=== PATIENT | male | born 1970 | race African-American/Black ===

== ENCOUNTER 2017-04-09 22:13 | Emergency (ER) | payer SELFPAY ==
[~2017-04-09] VITALS: Ht 182.8 cm; Wt 90.7 kg
[~2017-04-09 22:13] MED LIST: CLINDAMYCIN150 MG PO; CORTISPORIN 1%-10 M1 OT; FLONASE 0.05% 121 EA NAS; MOTRIN800 MG PO; TRAMADOL HCL50 MG PO; ZITHROMAX Z PA250 MG PO
[2017-04-09 23:09] LABS: BASO % 0.9 % (0.0-1.0); HEMATOCRIT 39.1 % (42.0-52.0); HEMOGLOBIN 12.9 g/dl (14.0-18.0); LYMPH # 1.3 10*3/uL (1.3-4.4); LYMPH % 28.3 % (27.0-41.0); MEAN CELL VOLUME 90.1 fl (80.0-94.0); MEAN CORPUSCULAR HGB 29.7 pg (27.0-31.0); MEAN PLATELET VOLUME 9.2 fl (9.6-12.3); MONO # 0.2 10*3/uL (0.1-1.0); MONO % 5.3 % (3.0-9.0); NEUT % 65.5 % (47.0-73.0); PLATELET COUNT AUTOMATED 228 10*3/uL (130-400); RED BLOOD COUNT 4.34 10*6/uL (4.50-5.90); RED CELL DISTRI WIDTH 14.1 % (0-14.5); WHITE BLOOD COUNT 4.5 10*3/uL (4.8-10.8)
[2017-04-09 23:24] LABS: ALBUMIN 4.2 gm/dl (3.1-4.5); ALKALINE PHOSPHATASE 97 U/L (45-117); BUN 6 mg/dl (7-24); CHLORIDE 104 mmol/L (98-107); CREATININE 1.02 mg/dL (0.70-1.30); LIPASE 86 U/L (73-393); POTASSIUM 3.5 mmol/L (3.5-5.1); SGOT/AST 145 IU/L (3-35); SGPT/ALT 90 U/L (12-78); SODIUM 139 mmol/L (136-145)
[2017-04-10 00:58] LABS: BILIRUBIN 1+ (NEGATIVE); BLOOD NEGATIVE (NEGATIVE); CLARITY SL CLOUDY (CLEAR); COLOR YELLOW (YELLOW); GLUCOSE NEGATIVE (NEGATIVE); KETONE 2+ (NEGATIVE); LEUKO ESTERASE 1+ (NEGATIVE); NITRITE NEGATIVE (NEGATIVE); PH 7.5 (5.0-9.0)
[2017-04-10] MEDS ORDERED: ZOFRAN ODT4 MG SL (01:04)
[2017-04-10 01:06] LABS: BACTERIA 1+; WBC 21-30 wbc/hpf (0-5)
== END 2017-04-10 01:36 | disposition home or self-care (01) ==
LOC: ED 22:13
PROVIDERS: Emergency Medicine Emergency Medical Services
DX: E86.0 Dehydration (principal); K52.9 Noninfective gastroenteritis and colitis, unspecified; F17.200 Nicotine dependence, unspecified, uncomplicated; Z88.0 Allergy status to penicillin; Z91.040 Latex allergy status

== ENCOUNTER 2017-10-26 15:59 | Inpatient (IN) | payer SELFPAY ==
[~2017-10-26] VITALS: Ht 182.9 cm; Wt 89.6 kg
[~2017-10-26 15:59] MED LIST changes: +ZOFRAN ODT4 MG SL
[2017-10-26 16:00] VITALS: BP 129/92
[2017-10-26 17:11] LABS: BASO # 0.1 10*3/uL (0.0-0.1); BASO % 0.6 % (0.0-1.0); EOS % 0.5 % (1.0-4.0); HEMATOCRIT 40.3 % (42.0-52.0); HEMOGLOBIN 13.1 g/dl (14.0-18.0); LYMPH # 2.6 10*3/uL (1.3-4.4); LYMPH % 30.4 % (27.0-41.0); MEAN CELL VOLUME 90.8 fl (80.0-94.0); MEAN CORPUSCULAR HGB 29.5 pg (27.0-31.0); MEAN CORPUSCULAR HGB CONC 32.5 g/dl (33.0-37.0); MEAN PLATELET VOLUME 8.8 fl (9.6-12.3); MONO # 0.7 10*3/uL (0.1-1.0); MONO % 7.5 % (3.0-9.0); NEUT # 5.2 10*3/uL (2.3-7.9); NEUT % 60.8 % (47.0-73.0); PLATELET COUNT AUTOMATED 272 10*3/uL (130-400); RED BLOOD COUNT 4.44 10*6/uL (4.50-5.90); RED CELL DISTRI WIDTH 13.8 % (0-14.5); WHITE BLOOD COUNT 8.6 10*3/uL (4.8-10.8)
[2017-10-26 17:27] LABS: ALBUMIN 4.1 gm/dl (3.1-4.5); ALKALINE PHOSPHATASE 87 U/L (45-117); BUN 7 mg/dl (7-24); CHLORIDE 103 mmol/L (98-107); CREATININE 0.97 mg/dL (0.70-1.30); POTASSIUM 3.9 mmol/L (3.5-5.1); SGOT/AST 31 IU/L (3-35); SGPT/ALT 28 U/L (12-78); SODIUM 140 mmol/L (136-145); TOTAL PROTEIN 8.1 gm/dL (6.4-8.2)
[2017-10-26 18:56] VITALS: BP 128/80
[2017-10-26 19:00] VITALS: BP 130/84
[2017-10-26 19:17] VITALS: BP 130/84
[2017-10-26 20:00] VITALS: BP 126/81
[2017-10-27] VITALS: BP 129/89
[2017-10-27 06:55] LABS: BASO # 0.1 10*3/uL (0.0-0.1); BASO % 0.8 % (0.0-1.0); EOS # 0.1 10*3/uL (0.0-0.4); EOS % 1.1 % (1.0-4.0); HEMATOCRIT 37.5 % (42.0-52.0); LYMPH # 2.8 10*3/uL (1.3-4.4); LYMPH % 43.1 % (27.0-41.0); MEAN CELL VOLUME 91.7 fl (80.0-94.0); MEAN CORPUSCULAR HGB 29.3 pg (27.0-31.0); MEAN PLATELET VOLUME 8.6 fl (9.6-12.3); MONO # 0.5 10*3/uL (0.1-1.0); MONO % 7.8 % (3.0-9.0); PLATELET COUNT AUTOMATED 245 10*3/uL (130-400); RED BLOOD COUNT 4.09 10*6/uL (4.50-5.90); RED CELL DISTRI WIDTH 13.8 % (0-14.5); WHITE BLOOD COUNT 6.4 10*3/uL (4.8-10.8)
[2017-10-27 07:24] LABS: ACT PARTIAL THROMBO TIME 28.3 SECONDS (20.8-31.5); ALBUMIN 3.3 gm/dl (3.1-4.5); ALKALINE PHOSPHATASE 67 U/L (45-117); BUN 10 mg/dl (7-24); CHLORIDE 104 mmol/L (98-107); CHOLESTEROL 156 mg/dL (<200); CREATININE 1.02 mg/dL (0.70-1.30); FREE T4 1.04 ng/dl (0.76-1.46); HDL CHOLESTEROL 78 mg/dl (40-60); LDL CHOLESTEROL 65 mg/dL (9-159); PHOSPHOROUS 3.4 mg/dL (2.5-4.9); POTASSIUM 3.6 mmol/L (3.5-5.1); SGOT/AST 23 IU/L (3-35); SGPT/ALT 21 U/L (12-78); SODIUM 141 mmol/L (136-145); TOTAL PROTEIN 6.8 gm/dL (6.4-8.2); TRIGLYCERIDES 64 mg/dl (<150); VLDL CHOLESTEROL 13 mg/dL (6-40)
[2017-10-27 08:00] VITALS: BP 140/96
[2017-10-27 09:00] VITALS: BP 124/85
[2017-10-27 09:33] LABS: VITAMIN D, 25-HYDROXY 9.8 ng/mL (30-100)
[2017-10-27 16:00] VITALS: BP 144/89
[2017-10-27 20:00] VITALS: BP 119/81
[2017-10-28] VITALS: BP 143/90
[2017-10-28 08:00] VITALS: BP 108/78
[2017-10-28 12:00] VITALS: BP 126/87
[2017-10-28] MEDS ORDERED: SEPTDS PO (13:06)
[2017-10-28] MEDS ORDERED: VITAMIN D5000 UNI1 PO (13:06)
[2017-10-28] MEDS ORDERED: CEPHALEXIN500 M1 PO (13:06)
== END 2017-10-28 13:55 | disposition home or self-care (01) | DRG 603 ==
LOC: ED 15:59 → 4E 18:08 → EDHOLD 18:08 → 4E 18:47
PROVIDERS: Family Medicine; Physician Assistant
DX: L03.114 Cellulitis of left upper limb (principal); E44.0 Moderate protein-calorie malnutrition; D64.9 Anemia, unspecified; S61.432A Puncture wound without foreign body of left hand, initial encounter; W01.0XXA Fall on same level from slipping, tripping and stumbling without subsequent striking against object, initial encounter; E55.9 Vitamin D deficiency, unspecified; Z68.26 Body mass index [BMI] 26.0-26.9, adult; Z71.6 Tobacco abuse counseling; Z72.0 Tobacco use; Z80.3 Family history of malignant neoplasm of breast; Z88.0 Allergy status to penicillin; Z91.040 Latex allergy status; Y93.89 Activity, other specified; Y92.89 Other specified places as the place of occurrence of the external cause; Y99.8 Other external cause status

== ENCOUNTER 2018-04-25 21:42 | Inpatient (IN) | payer MEDICAID ==
[~2018-04-25] VITALS: Ht 182.8 cm; Wt 87.2 kg
--- NOTE | ~2018-04-25 | O ---
[place], [place] OPERATIVE NOTE NAME: [id number] UNIT #: [id number] ROOM: [facility] DOCTOR: AISLINN CUELLAR DO BIRTHDATE: [birth year] DOS: 04/28/2018 PREOPERATIVE DIAGNOSIS: Left hand thenar eminence abscess and foreign body. POSTOPERATIVE DIAGNOSIS: Left hand thenar eminence multiloculated abscess with foreign body, deep to the muscle and fascia. OPERATIVE PROCEDURES: Incision, drainage, debridement of left hand thenar eminence, multiloculated abscess and removal of foreign body deep to the fascia and muscle. SURGEON: Aislinn Cuellar DO HOG CONFINEMENT SYSTEM MANAGER: Shankar. ANESTHESIA: Meli, GUILLERMO INDICATIONS: The patient is a 47-year-old male with a reported recurrent pain, swelling and erythema at the thenar eminence of the left hand. This began at the early October 2017. The patient was reported to have fallen in a wooded area with high grass. He states at one point he was admitted to the hospital for 5 days of IV antibiotics. The pain and swelling in the left hand would wax and wane since that time. DESCRIPTION OF PROCEDURE: The left hand was marked in the holding area. The patient was brought to the operative suite. No additional antibiotics were given as the patient has been on antibiotics for the last 48 hours. The left hand was marked in the holding room. The patient was brought to the operative suite. The patient was placed supine on the operative table. The timeout was performed. The general anesthetic with LMA intubation was performed. The left upper extremity was prepped and draped in usual orthopedic fashion. Tourniquet was placed on the left upper arm. The arm was elevated and the tourniquet was inflated to 250 mmHg. The incision was planned at the ulnar border of the thenar eminence. This was marked with a marking pen. Under loupe magnification, the incision approximately 3 cm in length was made sharply with a scalpel. Subcutaneous tissue was spread down to the level of the musculature of the thenar eminence. There was noted to be a white shiny thick capsule, which was debrided and opened. There was gross purulence, both a thin daniel fluid as well as thick gelatinous yellow purulence. Deep cultures were obtained. The abscess was followed both proximally and distally and 2 further pockets of infection were noted. In the more proximal direction as the muscular tissue was spread along the fibers, an additional pocket of fluid was identified. This was opened, purulence was expressed and an approximately 1.5 x 0.5 cm organic wooden appearing foreign body was removed. This was sent to the lab for further study. The capsules of these pockets were debrided under loupe magnification. The tunneling was noted to be approximately 4 cm in length. The pockets appeared to communicate. The area was copiously irrigated with normal saline. When no further purulence or foreign material was noted, the wound was packed with 0.25-inch iodoform loosely. The incision was closed with 4-0 Prolene. The iodoform was soaked in Marcaine 0.5% plain. The dressing was applied, Xeroform, [place], [place] OPERATIVE NOTE NAME: BERONICA LINDSEY UNIT #: [id number] ROOM: [facility] DOCTOR: AISLINN CUELLAR DO BIRTHDATE: [birth year] 4 x 4s, cast padding and a thumb spica type fashion followed by an Kun bandage, 2-inch and 4-inch. The tourniquet was released. The patient was extubated and taken to the recovery room in satisfactory condition. Sponge and needle count correct. ESTIMATED BLOOD LOSS: 5 mL. SPECIMENS: Fluid was sent to the lab for stat Gram stain, culture and sensitivity, soft tissue and foreign body were sent to the lab for verification. COMPLICATIONS: None. FINDINGS: Multiloculated abscess in the thenar eminence of the left hand with organic foreign body deep to the fascia and muscle. AISLINN CUELLAR DO CM:OPRECORD:OPERATIVE NOTE [id number] AISLINN CUELLAR DO 04/28/181843 interface
--- NOTE | ~2018-04-25 | EKG ---
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
[~2018-04-25 21:42] MED LIST changes: +CEPHALEXIN500 M1 PO; +SEPTDS PO; +VITAMIN D5000 UNI1 PO
[2018-04-25 21:44] VITALS: BP 127/85
[2018-04-25 22:16] LABS: BASO # 0.1 10*3/uL (0.0-0.1); EOS % 0.6 % (1.0-4.0); HEMATOCRIT 36.8 % (42.0-52.0); HEMOGLOBIN 12.3 g/dl (14.0-18.0); LYMPH # 2.6 10*3/uL (1.3-4.4); LYMPH % 51.5 % (27.0-41.0); MEAN CELL VOLUME 90.2 fl (80.0-94.0); MEAN CORPUSCULAR HGB 30.1 pg (27.0-31.0); MEAN CORPUSCULAR HGB CONC 33.4 g/dl (33.0-37.0); MEAN PLATELET VOLUME 8.6 fl (9.6-12.3); MONO # 0.4 10*3/uL (0.1-1.0); MONO % 8.4 % (3.0-9.0); NEUT % 38.5 % (47.0-73.0); PLATELET COUNT AUTOMATED 265 10*3/uL (130-400); RED BLOOD COUNT 4.08 10*6/uL (4.50-5.90); RED CELL DISTRI WIDTH 13.7 % (0-14.5); WHITE BLOOD COUNT 5.1 10*3/uL (4.8-10.8)
[2018-04-25 22:30] LABS: ALBUMIN 3.7 gm/dl (3.1-4.5); ALKALINE PHOSPHATASE 81 U/L (45-117); BUN 8 mg/dl (7-24); CHLORIDE 106 mmol/L (98-107); CREATININE 0.97 mg/dL (0.70-1.30); POTASSIUM 3.4 mmol/L (3.5-5.1); SGOT/AST 27 IU/L (3-35); SGPT/ALT 21 U/L (12-78); SODIUM 140 mmol/L (136-145); TOTAL PROTEIN 7.7 gm/dL (6.4-8.2)
[2018-04-26 00:39] VITALS: BP 119/80
[2018-04-26 01:00] VITALS: BP 126/94
[2018-04-26 06:39] LABS: BASO % 0.9 % (0.0-1.0); EOS # 0.1 10*3/uL (0.0-0.4); EOS % 1.2 % (1.0-4.0); HEMATOCRIT 35.5 % (42.0-52.0); HEMOGLOBIN 11.7 g/dl (14.0-18.0); LYMPH # 2.5 10*3/uL (1.3-4.4); LYMPH % 59.1 % (27.0-41.0); MEAN CELL VOLUME 90.8 fl (80.0-94.0); MEAN CORPUSCULAR HGB 29.9 pg (27.0-31.0); MEAN PLATELET VOLUME 8.8 fl (9.6-12.3); MONO # 0.4 10*3/uL (0.1-1.0); MONO % 9.3 % (3.0-9.0); NEUT # 1.3 10*3/uL (2.3-7.9); NEUT % 29.3 % (47.0-73.0); PLATELET COUNT AUTOMATED 264 10*3/uL (130-400); RED BLOOD COUNT 3.91 10*6/uL (4.50-5.90); WHITE BLOOD COUNT 4.3 10*3/uL (4.8-10.8)
[2018-04-26 06:41] LABS: ALBUMIN 3.4 gm/dl (3.1-4.5); ALKALINE PHOSPHATASE 75 U/L (45-117); BUN 6 mg/dl (7-24); CHLORIDE 106 mmol/L (98-107); CHOLESTEROL 167 mg/dL (<200); CREATININE 1.09 mg/dL (0.70-1.30); HDL CHOLESTEROL 77 mg/dl (40-60); LDL CHOLESTEROL 72 mg/dL (9-159); PHOSPHOROUS 2.8 mg/dL (2.5-4.9); POTASSIUM 3.6 mmol/L (3.5-5.1); SGOT/AST 24 IU/L (3-35); SGPT/ALT 20 U/L (12-78); SODIUM 141 mmol/L (136-145); TRIGLYCERIDES 90 mg/dl (<150); VLDL CHOLESTEROL 18 mg/dL (6-40)
[2018-04-26 06:47] LABS: THYROID STIM HORMONE (HS) 0.739 uIU/ml (0.358-4.75)
[2018-04-26 07:28] LABS: VITAMIN D, 25-HYDROXY 10.5 ng/mL (30-100)
[2018-04-26 08:00] VITALS: BP 115/73
[2018-04-26 12:00] VITALS: BP 119/74
[2018-04-26 16:00] VITALS: BP 118/76
[2018-04-26 20:00] VITALS: BP 125/71
[2018-04-27] VITALS: BP 115/74
[2018-04-27 08:00] VITALS: BP 124/77
[2018-04-27 12:00] VITALS: BP 108/74
[2018-04-27 16:00] VITALS: BP 119/83
[2018-04-27 20:00] VITALS: BP 121/79
[2018-04-28] VITALS (9 sets, daily range): BP systolic 112–146; BP diastolic 69–96
[2018-04-28 06:32] LABS: BASO # 0.1 10*3/uL (0.0-0.1); BASO % 1.3 % (0.0-1.0); EOS # 0.1 10*3/uL (0.0-0.4); EOS % 1.5 % (1.0-4.0); HEMATOCRIT 35.8 % (42.0-52.0); HEMOGLOBIN 11.8 g/dl (14.0-18.0); LYMPH # 2.4 10*3/uL (1.3-4.4); LYMPH % 51.6 % (27.0-41.0); MEAN CELL VOLUME 90.4 fl (80.0-94.0); MEAN CORPUSCULAR HGB 29.8 pg (27.0-31.0); MEAN PLATELET VOLUME 8.5 fl (9.6-12.3); MONO # 0.4 10*3/uL (0.1-1.0); NEUT # 1.7 10*3/uL (2.3-7.9); NEUT % 36.4 % (47.0-73.0); PLATELET COUNT AUTOMATED 263 10*3/uL (130-400); RED BLOOD COUNT 3.96 10*6/uL (4.50-5.90); RED CELL DISTRI WIDTH 13.4 % (0-14.5); WHITE BLOOD COUNT 4.7 10*3/uL (4.8-10.8)
== END 2018-04-28 17:23 | disposition home or self-care (01) | DRG 580 ==
LOC: ED 21:42 → EDHOLD 04-26 00:10 → 5E 04-26 00:10
PROVIDERS: Emergency Medicine; Family Medicine; Orthopaedic Surgery
PROC: 0KCD0ZZ Extirpation of Matter from Left Hand Muscle, Open Approach (ICD-10-PCS; principal; 2018-04-28)
PROC: 0JBK0ZZ Excision of Left Hand Subcutaneous Tissue and Fascia, Open Approach (ICD-10-PCS; 2018-04-28)
PROC: 0J9K0ZZ Drainage of Left Hand Subcutaneous Tissue and Fascia, Open Approach (ICD-10-PCS; 2018-04-28)
DX: L03.114 Cellulitis of left upper limb (principal); L02.512 Cutaneous abscess of left hand; R79.82 Elevated C-reactive protein (CRP); E66.3 Overweight; E55.9 Vitamin D deficiency, unspecified; D64.9 Anemia, unspecified; E87.6 Hypokalemia; R03.0 Elevated blood-pressure reading, without diagnosis of hypertension; S60.552A Superficial foreign body of left hand, initial encounter; W18.30XA Fall on same level, unspecified, initial encounter; Y93.89 Activity, other specified; Y92.89 Other specified places as the place of occurrence of the external cause; Y99.8 Other external cause status; Z72.0 Tobacco use; Z71.6 Tobacco abuse counseling; Z88.0 Allergy status to penicillin; Z91.040 Latex allergy status; Z80.3 Family history of malignant neoplasm of breast; Z79.899 Other long term (current) drug therapy; Z68.26 Body mass index [BMI] 26.0-26.9, adult

== ENCOUNTER 2020-06-10 19:22 | Emergency (ER) | payer SELFPAY ==
[~2020-06-10] VITALS: Ht 182.8 cm; Wt 88.5 kg
[2020-06-10 19:55] LABS: BILIRUBIN Negative (Negative); BLOOD Negative (Negative); CLARITY Clear (Clear); COLOR Yellow (Yellow); GLUCOSE Negative (Negative); KETONE Negative (Negative); LEUKO ESTERASE Negative (Negative); NITRITE Negative (Negative); PH 6.5 (4.5-8.0); SPECIFIC GRAVITY <= 1.005 (1.001-1.030); UROBILINOGEN 0.2 E.U./dl (0.0-1.0)
[2020-06-10 20:06] LABS: EPITHELIAL CELLS 0-2; WBC 0-2 wbc/hpf (0-5)
[2020-06-10] MEDS ORDERED: ROBAXIN-750750 MG PO (20:19)
[2020-06-10] MEDS ORDERED: NAPROSYN500 MG PO (20:19)
== END 2020-06-10 20:32 | disposition home or self-care (01) ==
LOC: ED 19:22
PROVIDERS: Internal Medicine
DX: S29.012A Strain of muscle and tendon of back wall of thorax, initial encounter (principal); Z88.0 Allergy status to penicillin; Z91.040 Latex allergy status; X58.XXXA Exposure to other specified factors, initial encounter; Y93.89 Activity, other specified; Y92.89 Other specified places as the place of occurrence of the external cause; Y99.8 Other external cause status

== ENCOUNTER 2020-10-14 21:09 | Emergency (ER) | payer OTHER ==
[~2020-10-14] VITALS: Ht 182.8 cm; Wt 90.7 kg
[~2020-10-14 21:09] MED LIST changes: +NAPROSYN500 MG PO; +ROBAXIN-750750 MG PO
== END 2020-10-15 02:00 | disposition left against medical advice (07) ==
LOC: ED 21:09
DX: M79.661 Pain in right lower leg (principal); L53.9 Erythematous condition, unspecified; Z53.21 Procedure and treatment not carried out due to patient leaving prior to being seen by health care provider

== ENCOUNTER 2021-03-18 17:18 | Emergency (ER) | payer SELFPAY ==
[~2021-03-18] VITALS: Wt 102.1 kg
[2021-03-18] MEDS ORDERED: PREDNISONE20 M1 PO (20:15)
[2021-03-18] MEDS ORDERED: ZITHROMAX250 MG PO (20:15)
[2021-03-18] MEDS ORDERED: PROVENTIL HFA6.7 GM INH (20:15)
== END 2021-03-18 20:21 | disposition home or self-care (01) ==
LOC: ED 17:18
DX: U07.1 COVID-19 (principal); J12.82 Pneumonia due to coronavirus disease 2019; Z88.0 Allergy status to penicillin; Z91.040 Latex allergy status

== ENCOUNTER 2021-09-07 16:16 | Emergency (ER) | payer OTHER ==
[~2021-09-07] VITALS: Ht 182.8 cm; Wt 95.3 kg
[~2021-09-07 16:16] MED LIST changes: +PREDNISONE20 M1 PO; +PROVENTIL HFA6.7 GM INH; +ZITHROMAX250 MG PO
== END 2021-09-07 18:00 | disposition home or self-care (01) ==
LOC: ED 16:16
DX: H10.9 Unspecified conjunctivitis (principal); Z88.0 Allergy status to penicillin; Z91.040 Latex allergy status; Z87.891 Personal history of nicotine dependence

== ENCOUNTER → 2022-07-21 | Outpatient (CLI) | payer OTHER ==
[2022-07-21 14:53] LABS: BASO % 0.7 % (0.0-1.0); EOS # 0.1 10*3/uL (0.0-0.4); EOS % 0.9 % (1.0-4.0); HEMATOCRIT 40.2 % (42.0-52.0); LYMPH % 53.5 % (27.0-41.0); MEAN CELL VOLUME 89.5 fl (80.0-94.0); MEAN CORPUSCULAR HGB 28.5 pg (27.0-31.0); MEAN CORPUSCULAR HGB CONC 31.8 g/dl (33.0-37.0); MEAN PLATELET VOLUME 9.3 fl (9.6-12.3); MONO # 0.4 10*3/uL (0.1-1.0); MONO % 7.6 % (3.0-9.0); NEUT # 2.1 10*3/uL (2.3-7.9); NEUT % 37.1 % (47.0-73.0); PLATELET COUNT AUTOMATED 301 10*3/uL (130-400); RED BLOOD COUNT 4.49 10*6/uL (4.50-5.90); RED CELL DISTRI WIDTH 14.6 % (0-14.5); WHITE BLOOD COUNT 5.7 10*3/uL (4.8-10.8)
[2022-07-21 15:11] LABS: ALKALINE PHOSPHATASE 101 U/L (46-116); BUN 7 mg/dl (9-23); CHLORIDE 104 mmol/L (98-107); CHOLESTEROL 220 mg/dL (<200); GAMMA GLUTAMYL TRANSPEPTIDASE 56 U/L (0-73); LDL CHOLESTEROL 140 mg/dL (9-159); SGPT/ALT 17 U/L (10-49); T3 UPTAKE 24.5 % (22.4-36.7); THYROID STIM HORMONE (HS) 0.998 uIU/ml (0.550-4.780); THYROXINE (T4) TOTAL 6.5 ug/dl (4.5-10.9); TOTAL PROTEIN 7.9 gm/dL (6.0-8.0); TRIGLYCERIDES 101 mg/dl (<150); URIC ACID 5.6 mg/dL (3.7-9.2); VITAMIN D, 25-HYDROXY 11.4 ng/mL (30-100)
== END | disposition home or self-care (01) ==
LOC: LAB 13:25
PROVIDERS: ATTEND Family Medicine
DX: E78.5 Hyperlipidemia, unspecified (principal); E55.9 Vitamin D deficiency, unspecified; R79.89 Other specified abnormal findings of blood chemistry; R53.83 Other fatigue; R74.8 Abnormal levels of other serum enzymes; R06.02 Shortness of breath; M47.814 Spondylosis without myelopathy or radiculopathy, thoracic region; I70.0 Atherosclerosis of aorta

== ENCOUNTER → 2022-08-16 | Outpatient (CLI) | payer OTHER ==
[~2022-08-16] MED LIST changes: +ELIQUIS5 M2 PO; +VIBRAMYCIN100 MG PO
== END | disposition home or self-care (01) ==
LOC: CT 00:28
PROVIDERS: ATTEND Family Medicine
DX: I26.99 Other pulmonary embolism without acute cor pulmonale (principal); K76.0 Fatty (change of) liver, not elsewhere classified

== ENCOUNTER 2022-08-17 14:29 | Emergency (ER) | payer OTHER ==
[~2022-08-17] VITALS: Ht 182.8 cm; Wt 104.3 kg
[~2022-08-17 14:29] MED LIST changes: -ELIQUIS5 M2 PO; -VIBRAMYCIN100 MG PO
[2022-08-17] MEDS ORDERED: ELIQUIS5 M2 PO (14:53)
[2022-08-17] MEDS ORDERED: VIBRAMYCIN100 MG PO (15:50)
== END 2022-08-17 16:17 | disposition home or self-care (01) ==
LOC: ED 14:29
DX: J90 Pleural effusion, not elsewhere classified (principal); Z88.0 Allergy status to penicillin; Z91.040 Latex allergy status; Z87.891 Personal history of nicotine dependence

== ENCOUNTER → 2022-09-06 | Outpatient (CLI) | payer OTHER ==
[~2022-09-06] MED LIST changes: +ELIQUIS5 M2 PO; +VIBRAMYCIN100 MG PO
== END | disposition short-term general hospital (02) ==
LOC: CARD 01:19 → US 09:30
PROVIDERS: ATTEND Family Medicine
DX: Z13.6 Encounter for screening for cardiovascular disorders (principal); R06.09 Other forms of dyspnea

== ENCOUNTER → 2022-11-02 | Outpatient (CLI) | payer OTHER | END | disposition home or self-care (01) | LOC: RAD 15:18 | PROVIDERS: ATTEND Family Medicine | DX: M19.011 Primary osteoarthritis, right shoulder (principal); M17.11 Unilateral primary osteoarthritis, right knee; M25.461 Effusion, right knee; M25.861 Other specified joint disorders, right knee ==

== ENCOUNTER → 2022-12-03 | Outpatient (CLI) | payer OTHER | END | disposition home or self-care (01) | LOC: MRI 01:14 | PROVIDERS: ATTEND Family Medicine | DX: S43.491A Other sprain of right shoulder joint, initial encounter (principal); M85.861 Other specified disorders of bone density and structure, right lower leg; M85.811 Other specified disorders of bone density and structure, right shoulder; M17.11 Unilateral primary osteoarthritis, right knee; X58.XXXA Exposure to other specified factors, initial encounter; Y93.89 Activity, other specified; Y92.89 Other specified places as the place of occurrence of the external cause; Y99.8 Other external cause status ==

== ENCOUNTER → 2023-01-11 | Outpatient (CLI) | payer OTHER ==
[2023-01-11 08:26] LABS: MEAN CORPUSCULAR HGB 29.9 pg (27.0-31.0); MEAN CORPUSCULAR HGB CONC 33.2 g/dl (33.0-37.0); PLATELET COUNT AUTOMATED 271 10*3/uL (130-400); RED BLOOD COUNT 4.22 10*6/uL (4.50-5.90); RED CELL DISTRI WIDTH 14.3 % (0-14.5); RETICULOCYTE % 1.72 % (0.50-2.50); WHITE BLOOD COUNT 5.8 10*3/uL (4.8-10.8)
[2023-01-11 08:28] LABS: MANUAL DIFF REFLEX YES
[2023-01-11 08:31] LABS: BILIRUBIN Negative (Negative); BLOOD Negative (Negative); CLARITY Clear (Clear); COLOR Yellow (Yellow); GLUCOSE Negative (Negative); KETONE Trace (Negative); LEUKO ESTERASE Negative (Negative); NITRITE Negative (Negative); PH 6.5 (4.5-8.0)
[2023-01-11 08:40] LABS: EPITHELIAL CELLS 0-2
[2023-01-11 08:46] LABS: ALKALINE PHOSPHATASE 89 U/L (46-116); BUN 6 mg/dl (9-23); CHLORIDE 109 mmol/L (98-107); POTASSIUM 4.1 mmol/L (3.4-5.1); SGPT/ALT 14 U/L (10-49); TOTAL PROTEIN 7.1 gm/dL (6.0-8.0)
[2023-01-11 08:50] LABS: TOTAL CELLS COUNTED 100 #CELLS
[2023-01-11 08:51] LABS: BURR CELLS FEW; OVALOCYTES FEW; PLATELET SUFFICIENCY NORMAL (NORMAL); POLYCHROMASIA SLIGHT; ROULEAUX SLIGHT
[2023-01-11 09:02] LABS: T3 UPTAKE 27.9 % (22.4-36.7); THYROXINE (T4) TOTAL 6.1 ug/dl (4.5-10.9)
[2023-01-11 09:18] LABS: VITAMIN D, 25-HYDROXY 13.3 ng/mL (30-100)
== END | disposition home or self-care (01) ==
LOC: CT 12-23 13:00
PROVIDERS: ATTEND Family Medicine
DX: Z01.818 Encounter for other preprocedural examination (principal); E78.5 Hyperlipidemia, unspecified; E55.9 Vitamin D deficiency, unspecified; I27.82 Chronic pulmonary embolism; R79.89 Other specified abnormal findings of blood chemistry; R74.8 Abnormal levels of other serum enzymes; R53.83 Other fatigue; K76.0 Fatty (change of) liver, not elsewhere classified

== ENCOUNTER 2023-04-03 13:34 | Emergency (ER) | payer OTHER ==
[~2023-04-03] VITALS: Ht 182.8 cm; Wt 95.3 kg
[2023-04-03 15:47] LABS: BASO % 0.3 % (0.0-1.0); HEMATOCRIT 40.8 % (42.0-52.0); LYMPH # 1.4 10*3/uL (1.3-4.4); LYMPH % 20.6 % (27.0-41.0); MEAN CORPUSCULAR HGB 28.8 pg (27.0-31.0); MEAN CORPUSCULAR HGB CONC 33.1 g/dl (33.0-37.0); MEAN PLATELET VOLUME 8.4 fl (9.6-12.3); MONO # 0.2 10*3/uL (0.1-1.0); NEUT # 5.1 10*3/uL (2.3-7.9); NEUT % 75.8 % (47.0-73.0); PLATELET COUNT AUTOMATED 322 10*3/uL (130-400); RED BLOOD COUNT 4.69 10*6/uL (4.50-5.90); RED CELL DISTRI WIDTH 14.8 % (0-14.5); WHITE BLOOD COUNT 6.8 10*3/uL (4.8-10.8)
[2023-04-03 16:08] LABS: ALKALINE PHOSPHATASE 108 U/L (46-116); BUN 10 mg/dl (9-23); CHLORIDE 103 mmol/L (98-107); LIPASE 26 U/L (12-53); POTASSIUM 4.4 mmol/L (3.4-5.1); SGPT/ALT 41 U/L (5-49); TOTAL PROTEIN 8.1 gm/dL (6.0-8.0)
[2023-04-03] MEDS ORDERED: ONDANSETRON4 MG SL (19:35)
== END 2023-04-03 19:49 | disposition home or self-care (01) ==
LOC: ED 13:34
PROVIDERS: Family Medicine
DX: J06.9 Acute upper respiratory infection, unspecified (principal); R11.2 Nausea with vomiting, unspecified; R19.7 Diarrhea, unspecified; Z88.0 Allergy status to penicillin; Z91.040 Latex allergy status; Z98.890 Other specified postprocedural states; F17.200 Nicotine dependence, unspecified, uncomplicated; Z20.822 Contact with and (suspected) exposure to COVID-19

== ENCOUNTER → 2023-11-22 | Outpatient (CLI) | payer OTHER ==
[~2023-11-22] MED LIST changes: +ONDANSETRON4 MG SL
== END | disposition home or self-care (01) ==
LOC: US 16:36
PROVIDERS: ATTEND Family Medicine
DX: M79.605 Pain in left leg (principal); Z86.711 Personal history of pulmonary embolism

== ENCOUNTER → 2023-11-23 | Outpatient (CLI) | payer OTHER ==
[2023-11-23 14:16] LABS: BASO % 0.2 % (0.0-1.0); LYMPH # 1.4 10*3/uL (1.3-4.4); MEAN CELL VOLUME 88.4 fl (80.0-94.0); MEAN CORPUSCULAR HGB 29.3 pg (27.0-31.0); MEAN CORPUSCULAR HGB CONC 33.2 g/dl (33.0-37.0); MEAN PLATELET VOLUME 8.5 fl (9.6-12.3); MONO # 0.2 10*3/uL (0.1-1.0); MONO % 3.4 % (3.0-9.0); NEUT # 2.7 10*3/uL (2.3-7.9); NEUT % 62.9 % (47.0-73.0); PLATELET COUNT AUTOMATED 264 10*3/uL (130-400); RED CELL DISTRI WIDTH 14.2 % (0-14.5); WHITE BLOOD COUNT 4.4 10*3/uL (4.8-10.8)
[2023-11-24 16:07] LABS: ERYTHROPOIETIN 4.4 mIU/mL (2.6-18.5)
== END | disposition home or self-care (01) ==
LOC: LAB 00:59 → MRI 00:59
PROVIDERS: Internal Medicine Medical Oncology; ATTEND Family Medicine
DX: S83.242A Other tear of medial meniscus, current injury, left knee, initial encounter (principal); D64.9 Anemia, unspecified; M79.605 Pain in left leg; M17.12 Unilateral primary osteoarthritis, left knee; M25.462 Effusion, left knee; R60.0 Localized edema; M71.562 Other bursitis, not elsewhere classified, left knee; I26.99 Other pulmonary embolism without acute cor pulmonale; X58.XXXA Exposure to other specified factors, initial encounter; Y93.89 Activity, other specified; Y92.89 Other specified places as the place of occurrence of the external cause; Y99.8 Other external cause status

== ENCOUNTER → 2023-12-19 | Outpatient (CLI) | payer OTHER ==
[2023-12-19 18:27] LABS: BF LYMPHOCYTES 25 %; BF NEUTROPHILS 19 %
[2023-12-19 18:32] LABS: BF MACROPHAGES 54 %
[2023-12-20 15:08] LABS: ACID FAST SPEC PROCESSING Direct Inoculation (.)
== END | disposition home or self-care (01) ==
LOC: LAB 15:59
PROVIDERS: ATTEND Orthopaedic Surgery
DX: R53.83 Other fatigue (principal); M25.562 Pain in left knee

== ENCOUNTER → 2023-12-31 | Outpatient (CLI) | payer OTHER ==
[2023-12-31 10:21] LABS: BASO % 0.3 % (0.0-1.0); EOS # 0.1 10*3/uL (0.0-0.4); EOS % 2.1 % (1.0-4.0); HEMATOCRIT 38.6 % (42.0-52.0); LYMPH # 2.5 10*3/uL (1.3-4.4); LYMPH % 42.9 % (27.0-41.0); MEAN CELL VOLUME 88.5 fl (80.0-94.0); MEAN CORPUSCULAR HGB 29.1 pg (27.0-31.0); MEAN CORPUSCULAR HGB CONC 32.9 g/dl (33.0-37.0); MEAN PLATELET VOLUME 8.5 fl (9.6-12.3); MONO # 0.3 10*3/uL (0.1-1.0); MONO % 5.2 % (3.0-9.0); NEUT # 2.8 10*3/uL (2.3-7.9); NEUT % 49.2 % (47.0-73.0); PLATELET COUNT AUTOMATED 284 10*3/uL (130-400); RED BLOOD COUNT 4.36 10*6/uL (4.50-5.90); RED CELL DISTRI WIDTH 14.4 % (0-14.5); WHITE BLOOD COUNT 5.8 10*3/uL (4.8-10.8)
[2024-01-01 10:06] LABS: HBSAG Negative (Negative); HEP B CORE AB, IGM Negative (Negative); HEPATITIS C ANTIBODY Non Reactive (Non Reactive)
[2024-01-02 12:07] LABS: LUPUS DRVVT 39.8 sec (0.0-47.0); PTT-LA 30.4 sec (0.0-43.5)
[2024-01-02 13:06] LABS: ANTI-RNP ANTIBODIES <0.2 AI (0.0-0.9); CCP ANTIBODIES IGG/IGA 9 units (0-19); LUPUS REFLEX INTERPRETATION Comment: (.)
== END | disposition home or self-care (01) ==
LOC: LAB 12-21 00:43
PROVIDERS: ATTEND Orthopaedic Surgery
DX: R53.83 Other fatigue (principal); M25.562 Pain in left knee

== ENCOUNTER → 2025-01-03 | Outpatient (CLI) | payer OTHER ==
[2025-01-03 15:23] LABS: BILIRUBIN Negative (Negative); BLOOD Negative (Negative); CLARITY Clear (Clear); COLOR Yellow (Yellow); KETONE Trace (Negative); LEUKO ESTERASE Trace (Negative); NITRITE Negative (Negative); PH 6.5 (4.5-8.0); SPECIFIC GRAVITY 1.020 (1.001-1.030); UROBILINOGEN 1.0 E.U./dl (0.0-1.0)
[2025-01-03 15:24] LABS: BASO # 0.0 10*3/uL (0.0-0.1); BASO % 0.6 % (0.0-1.0); EOS # 0.0 10*3/uL (0.0-0.4); EOS % 0.7 % (1.0-4.0); MEAN CELL VOLUME 89.7 fl (80.0-94.0); MEAN CORPUSCULAR HGB 29.2 pg (27.0-31.0); MEAN PLATELET VOLUME 8.5 fl (9.6-12.3); MONO # 0.3 10*3/uL (0.1-1.0); MONO % 6.2 % (3.0-9.0); NEUT # 1.9 10*3/uL (2.3-7.9); NEUT % 34.9 % (47.0-73.0); NUCLEATED RED BLOOD CELL 0.0 % (0.0-0.0); NUCLEATED RED BLOOD CELL 0.0 10*3/uL (0.0-0.0); PLATELET COUNT AUTOMATED 256 10*3/uL (130-400); RED CELL DISTRI WIDTH 14.1 % (0-14.5); RETICULOCYTE % 1.38 % (0.50-2.50)
[2025-01-03 15:30] LABS: BACTERIA 2+; MUCOUS 1+
[2025-01-03 16:00] LABS: BUN 7 mg/dl (9-23); GAMMA GLUTAMYL TRANSFERASE 68 U/L (0-73); LDL CHOLESTEROL 119 mg/dL (9-159); SGPT/ALT 22 U/L (5-49); T3 UPTAKE 29.2 % (22.4-36.7); THYROXINE (T4) TOTAL 5.4 ug/dl (4.5-10.9)
[2025-01-03 16:01] LABS: VITAMIN D, 25-HYDROXY 23.6 ng/mL (30-100)
== END | disposition home or self-care (01) ==
LOC: LAB 01-02 01:50
PROVIDERS: ATTEND Family Medicine
DX: E78.5 Hyperlipidemia, unspecified (principal); E55.9 Vitamin D deficiency, unspecified; R79.89 Other specified abnormal findings of blood chemistry; R53.83 Other fatigue